=== PATIENT | female | born 1955 | race Caucasian/White ===

== ENCOUNTER → 2016-08-05 | Outpatient (CLI) | payer OTHER ==
[~2016-08-05] VITALS: Ht 170.2 cm; Wt 75.0 kg
[~2016-08-05] MED LIST: BENZOCAINE 20% ORAL SPR 60 ML CAN OROPHARYNG ONE; ESTR.1T TD; HYDR200T42 PO; LIDOCAINE 2% JELLY 5 ML TUBE TOPICAL ONE; LOSA100T PO; METF500 PO; MULT-65 PO; PROT40TA PO; TRET45CR TOP
[2016-08-05 07:11] VITALS: BP 152/73; PULSE 63; RESP 18; TEMP 98.2; O2SAT 99
== END ==
LOC: HEND 06:56
PROVIDERS: ATTEND Internal Medicine Gastroenterology
DX: K22.4 Dyskinesia of esophagus (principal); R07.9 Chest pain, unspecified
CPT/HCPCS: 91010